=== PATIENT | female | born 1955 | race Caucasian/White ===

== ENCOUNTER 2022-05-18 08:21 | Emergency (ER) | payer OTHER ==
[2022-05-18] MEDS ORDERED: HYDROCODON-ACE1 EAC4 PO (10:46)
[2022-05-24] MEDS ORDERED: VITAMIN D21250 MCG PO (14:41)
[2022-05-24] MEDS ORDERED: HYDROCODON-ACE1 EAC4 PO (14:41)
[2022-05-24] MEDS ORDERED: ZOFRAN ODT 4 MG4 MG SL (14:42)
[2022-05-24] MEDS ORDERED: PREDNISONE10 M1 PO (14:42)
[2022-05-24] MEDS ORDERED: NORVASC5 MG PO (14:43)
[2022-05-24] MEDS ORDERED: HYDROCHLOROTH12.5 MG PO (14:43)
[2022-05-24] MEDS ORDERED: IMITREX100 MG PO (14:43)
== END 2022-05-18 11:30 | disposition home or self-care (01) ==
LOC: ER1 08:21
DX: S92.002A Unspecified fracture of left calcaneus, initial encounter for closed fracture (principal); S82.55XA Nondisplaced fracture of medial malleolus of left tibia, initial encounter for closed fracture; W19.XXXA Unspecified fall, initial encounter; Y92.009 Unspecified place in unspecified non-institutional (private) residence as the place of occurrence of the external cause
CPT/HCPCS: 28405; 73610; 73630; 99283

== ENCOUNTER → 2022-05-21 | Outpatient (CLI) | payer OTHER ==
[~2022-05-21] MED LIST: HYDROCODON-ACE1 EAC4 PO
== END ==
LOC: EMI 12:52
DX: S92.002A Unspecified fracture of left calcaneus, initial encounter for closed fracture (principal); S86.012A Strain of left Achilles tendon, initial encounter; S86.092A Other specified injury of left Achilles tendon, initial encounter; S82.55XA Nondisplaced fracture of medial malleolus of left tibia, initial encounter for closed fracture
CPT/HCPCS: 73718

== ENCOUNTER → 2022-05-31 | Outpatient (CLI) | payer OTHER ==
[~2022-05-31] MED LIST changes: +CLARITIN5 MG PO; +HYDROCHLOROTH12.5 MG PO; +IMITREX100 MG PO; +NORVASC5 MG PO; +PREDNISONE10 M1 PO; +VITAMIN D21250 MCG PO; +ZOFRAN ODT 4 MG4 MG SL
== END ==
LOC: KOH-I 10:37
DX: M25.572 Pain in left ankle and joints of left foot (principal); Z98.890 Other specified postprocedural states
CPT/HCPCS: 73610; 73650

== ENCOUNTER → 2022-06-14 | Outpatient (CLI) | payer OTHER | LOC: KOH-I 11:18 | DX: S82.52XD Displaced fracture of medial malleolus of left tibia, subsequent encounter for closed fracture with routine healing (principal) | CPT/HCPCS: 73610; 73650 ==

== ENCOUNTER → 2022-06-26 | Outpatient (CLI) | payer OTHER | LOC: KOH-I 10:12 | DX: M25.572 Pain in left ankle and joints of left foot (principal); S82.52XA Displaced fracture of medial malleolus of left tibia, initial encounter for closed fracture | CPT/HCPCS: 73610; 73650 ==